=== PATIENT | male | born 1955 | race African-American/Black ===

== ENCOUNTER 2017-12-29 10:16 | Emergency (ER) | payer BC, OTHER ==
[2017-12-29 10:23] VITALS: BP 134/83; PULSE 103; TEMP 98; BMI 24.4
[2017-12-29] MEDS ORDERED: DIPHTH,PERTUSS(ACELL),TET 0.5 ML DISP.SYRIN IM ONE (10:40)
--- NOTE | 2017-12-29 11:10 | PDOC ---
History of Present Illness - General Chief Complaint: Injury Stated Complaint: INJURY Time Seen by Provider: 12/29/17 10:26 History Source: Patient - History of Present Illness Timing/Duration: reports: this morning Severity: Yes: mild Location: reports: extremities Past History - Past Medical History Allergies/Adverse Reactions: Allergies Allergy/AdvReac Type Severity Reaction Status Date / Time quinine [Quinine] Allergy Itching Verified 12/29/17 10:23 Home Medications: Ambulatory Orders Aspirin [ASA -] 81 mg PO DAILY 07/19/12 Levemir Flexpen - 24 units SQ HS 09/08/12 Insulin (Levemir) [Levemir Flexpen -] 24 units SQ HS #0 pen 09/10/12 Lisinopril [Prinivil] 20 mg PO DAILY #0 tablet 09/10/12 Pantoprazole Sodium [Protonix] 40 mg PO DAILY #0 tablet. 09/10/12 Sitagliptin Phosphate [Januvia -] 50 mg PO BIDAC #0 tablet 09/10/12 Oxycodone HCl/Acetaminophen [Percocet 5/325 -] 1 tab PO Q6H PRN #12 tablet 04/23 Anemia: Yes COPD: No Diabetes: Yes HTN: Yes Hypercholesterolemia: Yes - Suicide/Smoking/Psychosocial Hx Smoking Status: No Smoking History: Never smoked Number of Cigarettes Smoked Daily: 0 Hx Alcohol Use: Yes (OCCASIONAL) Review of Systems - Review of Systems Integumentary: Yes: Other (wound) *Physical Exam - Vital Signs Last Vital Signs Temp Pulse Resp BP Pulse Ox 98 F 103 H 20 134/83 99 12/29/17 10:21 12/29/17 10:21 12/29/17 10:21 12/29/17 10:21 12/29/17 10:21 - Physical Exam General Appearance: Yes: Appropriately Dressed. No: Apparent Distress HEENT: positive: Normal Voice Neck: positive: Supple Extremity: positive: Other (~1cm linear cutaneous lac to dorsum of R great toe) Integumentary: positive: Dry, Warm Neurologic: positive: Fully Oriented, Alert, Normal Mood/Affect Medical Decision Making - Medical Decision Making 12/29/17 10:40 62 yo M, h/o DM, HTN, HLD, here w/ lac to R great toe. Pt states he tripped in his slippers this am and states his R great toe hyperflexed during incident leading to injury See exam Superficial lac to dorsum of R great toe -dermabond -tetanus -dc w/ wound check as needed *DC/Admit/Observation/Transfer Diagnosis at time of Disposition: Toe laceration Qualifiers: Encounter type: initial encounter Toe: great toe Damage to nail status: unspecified Foreign body presence: unspecified Laterality: right Qualified Code( s): S91.111A - Laceration without foreign body of right great toe without damage to nail, initial encounter - Discharge Dispostion Disposition: HOME Condition at time of disposition: Good - Referrals Referrals: Moriah Trevino MD [Primary Care Provider] - - Patient Instructions Printed Discharge Instructions: DI for Laceration Repair Additional Instructions: Do not bandage a wound treated with an adhesive. The adhesive works like a bandage. Do not use antibiotic ointment as it can break down the adhesive. You can shower while the adhesive is on your skin, but do not take a bath or soak or scrub the area for 7 to 10 days. Dry your skin by patting it gently with a towel. The adhesive will peel off on its own, usually by 5 to 10 days. If after 10 days , you still have adhesive on you, you can use antibiotic ointment or petroleum jelly to get it off. You do not need to see the doctor again unless the wound doesnt heal well or you have signs of infection, such as redness, swelling, or pus. - Post Discharge Activity
== END 2017-12-29 11:25 | disposition home or self-care (01) ==
LOC: JERFT 10:16
PROC: 3E0234Z Introduction of Serum, Toxoid and Vaccine into Muscle, Percutaneous Approach (ICD-10-PCS; principal; 2017-12-29)
DX: S91.111A Laceration without foreign body of right great toe without damage to nail, initial encounter (principal); W18.09XA Striking against other object with subsequent fall, initial encounter; Y93.89 Activity, other specified; Y92.009 Unspecified place in unspecified non-institutional (private) residence as the place of occurrence of the external cause; E11.9 Type 2 diabetes mellitus without complications; I10 Essential (primary) hypertension; E78.5 Hyperlipidemia, unspecified
CPT/HCPCS: 90715; 99281-25

== ENCOUNTER 2017-12-29 12:44 | Emergency (ER) | payer BC ==
[2017-12-29 12:56] VITALS: BP 124/80; PULSE 110; TEMP 98; BMI 24.4
--- NOTE | 2017-12-29 14:23 | PDOC ---
History of Present Illness - General Chief Complaint: Injury Stated Complaint: REVISIT, INJURY Time Seen by Provider: 12/29/17 13:13 History Source: Patient - History of Present Illness Timing/Duration: reports: this morning Location: reports: extremities Past History - Past Medical History Allergies/Adverse Reactions: Allergies Allergy/AdvReac Type Severity Reaction Status Date / Time quinine [Quinine] Allergy Itching Verified 12/29/17 12:56 Home Medications: Ambulatory Orders Aspirin [ASA -] 81 mg PO DAILY 07/19/12 Levemir Flexpen - 24 units SQ HS 09/08/12 Insulin (Levemir) [Levemir Flexpen -] 24 units SQ HS #0 pen 09/10/12 Lisinopril [Prinivil] 20 mg PO DAILY #0 tablet 09/10/12 Pantoprazole Sodium [Protonix] 40 mg PO DAILY #0 tablet. 09/10/12 Sitagliptin Phosphate [Januvia -] 50 mg PO BIDAC #0 tablet 09/10/12 Anemia: Yes COPD: No Diabetes: Yes HTN: Yes Hypercholesterolemia: Yes - Suicide/Smoking/Psychosocial Hx Smoking Status: No Smoking History: Never smoked Number of Cigarettes Smoked Daily: 0 Hx Alcohol Use: Yes (OCCASIONAL) Review of Systems - Review of Systems Integumentary: Yes: Other (bleeding) *Physical Exam - Vital Signs Last Vital Signs Temp Pulse Resp BP Pulse Ox 98 F 110 H 20 124/80 99 12/29/17 12:54 12/29/17 12:54 12/29/17 12:54 12/29/17 12:54 12/29/17 12:54 - Physical Exam General Appearance: Yes: Appropriately Dressed. No: Apparent Distress HEENT: positive: Normal Voice Neck: positive: Supple Respiratory/Chest: negative: Respiratory Distress Extremity: positive: Other (well approximated lac to dorsum of R great toe w/ dermabond in place, there is a ~1-2 mm opening w/ minimal slow bleed) Integumentary: positive: Dry, Warm Neurologic: positive: Fully Oriented, Alert, Normal Mood/Affect Medical Decision Making - Medical Decision Making 12/29/17 14:33 62-year-old male, history of diabetes, hypertension, hyperlipidemia, seen in ED over an hour ago for superficial toe lac that was dermabonded. Pt states after he left ED, noticed increased bleeding from wound, despite compression dressing in place. Patient well-appearing and stable with mostly approximated wound with Dermabond in place with ~ 1-2 mm opening with minimal bleed. Dermabond reapplied with compression dressing. Dc to keep dressing in place for the rest of the day and to follow instructions about wound care at home given to patient at prior ER visit *DC/Admit/Observation/Transfer Diagnosis at time of Disposition: Visit for wound care - Discharge Dispostion Disposition: HOME Condition at time of disposition: Good - Referrals Referrals: Moriah Trevino MD [Primary Care Provider] - - Patient Instructions Additional Instructions: Follow directions given to you on prior ED visit - Post Discharge Activity Forms/Work/School Notes: Back to Work
== END 2017-12-29 14:28 | disposition home or self-care (01) ==
LOC: JERFT 12:44
DX: Z48.00 Encounter for change or removal of nonsurgical wound dressing (principal)
CPT/HCPCS: 99281-25

== ENCOUNTER 2021-05-25 19:08 | Emergency (ER) | payer OTHER, BC ==
[2021-05-25 19:43] VITALS: BMI 22.4
[2021-05-25] MEDS ORDERED: ACETAMINOPHEN 325 MG TABLET (FP) PO ONE (20:22)
[2021-05-25] MEDS ORDERED: LACTATED RINGERS SOLUTION 1000 ML INFUS.BAG IV ONE (20:31)
[2021-05-25 21:58] LABS: BASO % 0.8 % (0-2.0); EOS % 1.3 % (0-4.5); HEMATOCRIT 46.5 % (35.4-49); HEMOGLOBIN 15.4 GM/dL (11.7-16.9); LYMPH % 17.3 % (8-40); MCH 29.6 pg (25.7-33.7); MCHC 33.1 g/dl (32.0-35.9); MEAN CELL VOLUME 89.3 fl (80-96); MEAN PLT VOLUME 9.4 fl (7.5-11.1); MONO % 16.8 % (3.8-10.2); NEUT % 63.8 % (42.8-82.8); PLATELET COUNT 203 10^3/uL (134-434); RDW 13.7 % (11.9-15.9); WHITE BLOOD COUNT 4.7 K/mm3 (4.0-10.0)
[2021-05-25 22:23] LABS: CHLORIDE 104 mmol/L (98-107); SODIUM 138 mmol/L (136-145)
[2021-05-25 22:25] LABS: CALCIUM 9.3 mg/dL (8.5-10.1)
[2021-05-25 22:26] LABS: ALBUMIN 4.1 g/dl (3.4-5.0); ANION GAP 7 MMOL/L (8-16); BLOOD UREA NITROGEN 11.4 mg/dL (7-18); CO2 27 mmol/L (21-32); GLUCOSE,RANDOM 272 mg/dL (74-106)
[2021-05-25 22:29] LABS: CREATININE 0.9 mg/dL (0.55-1.3); SGOT/AST 21 U/L (15-37); SGPT/ALT 48 U/L (13-61)
[2021-05-25 22:30] LABS: BILIRUBIN,TOTAL 0.5 mg/dL (0.2-1); TOT PROT 8.3 g/dl (6.4-8.2)
[2021-05-25 22:31] LABS: ALK PHOS 126 U/L (45-117)
[2021-05-25 23:22] VITALS: BP 110/66; PULSE 84; TEMP 99
== END 2021-05-25 23:22 | disposition home or self-care (01) ==
LOC: JER 19:08
DX: U07.1 COVID-19 (principal); R53.81 Other malaise; R53.83 Other fatigue
CPT/HCPCS: 36415; 71046-TC-FY; 80053; 84484; 85025; 87804; 87807; 93005; 93010; 99285-25; C9803-CS; U0003; U0005

== ENCOUNTER 2021-07-01 22:08 | Emergency (ER) | payer OTHER, BC ==
[2021-07-01 22:24] VITALS: BP 155/95; PULSE 100; TEMP 97.6; BMI 24.4
[2021-07-01] MEDS ORDERED: ACETAMINOPHEN 500 MG TABLET (FP) PO ONE (23:58)
[2021-07-02] MEDS ORDERED: ACETAMINOPHEN 325 MG TABLET (FP) ONE (00:42)
[2021-07-02] MEDS ORDERED: LIDOCAINE 5% TOPICAL PATCH TP ONE (02:11)
[2021-07-02] MEDS ORDERED: LIDOCAINE 5% TOPICAL PATCH ONE (02:19)
[2021-07-02] MEDS ORDERED: LIDOCAINE PATCH REMOVAL MC SCH (22:00)
== END 2021-07-02 03:31 | disposition home or self-care (01) ==
LOC: JER 22:08
DX: S79.912A Unspecified injury of left hip, initial encounter (principal); W19.XXXA Unspecified fall, initial encounter; Y92.9 Unspecified place or not applicable
CPT/HCPCS: 73523-TC-FY; 73562-TC-LT-FY; 99285-25

== ENCOUNTER 2022-04-03 16:54 | Inpatient (IN) | payer OTHER, BC ==
[2022-04-03 17:34] VITALS: BMI 26.6
[2022-04-03 18:56] LABS: BASO % 0.5 % (0-2.0); EOS % 0.1 % (0-4.5); HEMATOCRIT 47.5 % (35.4-49); LYMPH % 8.5 % (8-40); MCH 30.3 pg (25.7-33.7); MCHC 33.6 g/dl (32.0-35.9); MEAN CELL VOLUME 89.9 fl (80-96); MEAN PLT VOLUME 8.5 fl (7.5-11.1); NEUT % 82.9 % (42.8-82.8); PLATELET COUNT 173 10^3/uL (134-434); RBC 5.28 M/mm3 (4.00-5.60); WHITE BLOOD COUNT 6.9 K/mm3 (4.0-10.0)
[2022-04-03 19:11] LABS: CALCIUM 9.4 mg/dL (8.5-10.1)
[2022-04-03 19:12] LABS: BLOOD UREA NITROGEN 16.7 mg/dL (7-18)
[2022-04-03 19:14] LABS: CREATININE 1.1 mg/dL (0.55-1.3); PHOSPHOROUS 2.5 mg/dL (2.5-4.9)
[2022-04-03 19:16] LABS: BILIRUBIN,TOTAL 0.6 mg/dL (0.2-1); TOT PROT 8.5 g/dl (6.4-8.2)
[2022-04-04] MEDS: SODIUM CHLORIDE 1,000 ML IV SCH ×2 (02:35→19:30)
[2022-04-04] MEDS: OSELTAMIVIR PHOSPHATE 75 MG CAPSULE PO SCH ×3 (02:35→21:53)
[2022-04-04] MEDS: INSULIN SLIDING SCALE (NOVOLOG) 1 VIAL SQ SCH ×4 (02:35→16:53)
[2022-04-04 10:00] LABS: EPI CELLS 2 /uL (0-25.1); HYALINE CASTS 0 /uL (0-3.1); PH,URINE 5.5 (5.0-8.0); URINE APPEARANCE CLEAR; URINE BACTERIA 5 /uL (0-1359); URINE BILIRUBIN NEGATIVE (NEGATIVE); URINE COLOR DK YELLOW; URINE GLUCOSE (UA) 3+ (NEGATIVE); URINE KETONE 1+ (NEGATIVE); URINE LEUK ESTERASE NEGATIVE (NEGATIVE); URINE NITRITE NEGATIVE (NEGATIVE); URINE PROTEIN 1+ (NEGATIVE); URINE RBC 29 /uL (0-23.9); URINE WBC 6 /uL (0-25.8)
[2022-04-04] MEDS: ENOXAPARIN NA (PORCINE) 40 MG/0.4 ML DISP.SYRIN SQ SCH (10:08)
[2022-04-04 13:24] LABS: HEMATOCRIT 43.8 % (35.4-49); HEMOGLOBIN 14.9 GM/dL (11.7-16.9); MCH 30.4 pg (25.7-33.7); MEAN CELL VOLUME 89.4 fl (80-96); MEAN PLT VOLUME 8.6 fl (7.5-11.1); PLATELET COUNT 153 10^3/uL (134-434); RDW 14.1 % (11.9-15.9); WHITE BLOOD COUNT 8.4 K/mm3 (4.0-10.0)
[2022-04-04 13:45] LABS: BLOOD UREA NITROGEN 15.5 mg/dL (7-18)
[2022-04-04 13:47] LABS: CALCIUM 8.7 mg/dL (8.5-10.1)
[2022-04-04 13:48] LABS: CREATININE 0.9 mg/dL (0.55-1.3); MAGNESIUM 2.1 mg/dL (1.8-2.4); PHOSPHOROUS 2.3 mg/dL (2.5-4.9)
[2022-04-04] MEDS ORDERED: LISINOPRIL 20 MG TABLET PO ONE (18:44)
[2022-04-04] MEDS: LISINOPRIL 20 MG TABLET PO SCH (21:53)
[2022-04-04] MEDS: INSULIN (LEVEMIR) 100 UNITS/ML UNITS SQ SCH (21:53)
[2022-04-04 22:37] VITALS: RESP 20
[2022-04-05] MEDS: SODIUM CHLORIDE 1,000 ML IV SCH ×2 (04:31→16:14)
[2022-04-05] MEDS: INSULIN (NOVOLOG) ASPART 100 UNITS/ML 10ML VIAL SQ SCH ×3 (06:48→16:57)
[2022-04-05] MEDS: INSULIN (LEVEMIR) 100 UNITS/ML UNITS SQ SCH ×2 (06:48→23:04)
[2022-04-05] MEDS: INSULIN SLIDING SCALE (NOVOLOG) 1 VIAL SQ SCH ×3 (06:54→16:57)
[2022-04-05 10:03] LABS: HEMATOCRIT 40.1 % (35.4-49); HEMOGLOBIN 13.6 GM/dL (11.7-16.9); MCH 30.1 pg (25.7-33.7); MCHC 33.9 g/dl (32.0-35.9); MEAN PLT VOLUME 9.3 fl (7.5-11.1); PLATELET COUNT 157 10^3/uL (134-434); RBC 4.51 M/mm3 (4.00-5.60); RDW 13.7 % (11.9-15.9); WHITE BLOOD COUNT 7.7 K/mm3 (4.0-10.0)
[2022-04-05] MEDS: ENOXAPARIN NA (PORCINE) 40 MG/0.4 ML DISP.SYRIN SQ SCH (10:16)
[2022-04-05] MEDS: OSELTAMIVIR PHOSPHATE 75 MG CAPSULE PO SCH ×2 (10:17→23:05)
[2022-04-05] MEDS: LISINOPRIL 20 MG TABLET PO SCH (10:17)
[2022-04-05 10:31] LABS: CALCIUM 8.3 mg/dL (8.5-10.1)
[2022-04-05 10:32] LABS: BLOOD UREA NITROGEN 12.7 mg/dL (7-18)
[2022-04-05 10:35] LABS: CREATININE 0.8 mg/dL (0.55-1.3)
[2022-04-05 10:37] LABS: BILIRUBIN,TOTAL 0.8 mg/dL (0.2-1)
[2022-04-05 10:44] LABS: ALBUMIN 2.8 g/dl (3.4-5.0); TOT PROT 6.5 g/dl (6.4-8.2)
[2022-04-05] MEDS ORDERED: SODIUM CHLORIDE NASAL SPRAY 44 ML BOTTLE NS PRN (17:03)
[2022-04-06] MEDS: INSULIN (NOVOLOG) ASPART 100 UNITS/ML 10ML VIAL SQ SCH ×3 (07:03→17:45)
[2022-04-06] MEDS: INSULIN (LEVEMIR) 100 UNITS/ML UNITS SQ SCH (07:03)
[2022-04-06] MEDS: INSULIN SLIDING SCALE (NOVOLOG) 1 VIAL SQ SCH ×3 (07:04→17:45)
[2022-04-06] MEDS: OSELTAMIVIR PHOSPHATE 75 MG CAPSULE PO SCH (09:58)
[2022-04-06] MEDS: LISINOPRIL 20 MG TABLET PO SCH (09:58)
[2022-04-06] MEDS: ENOXAPARIN NA (PORCINE) 40 MG/0.4 ML DISP.SYRIN SQ SCH (10:05)
[2022-04-06 10:14] VITALS: TEMP 98.4
[2022-04-06 13:08] LABS: HEMATOCRIT 41.8 % (35.4-49); HEMOGLOBIN 14.1 GM/dL (11.7-16.9); MCH 30.1 pg (25.7-33.7); MCHC 33.7 g/dl (32.0-35.9); MEAN CELL VOLUME 89.4 fl (80-96); MEAN PLT VOLUME 9.1 fl (7.5-11.1); PLATELET COUNT 169 10^3/uL (134-434); RBC 4.68 M/mm3 (4.00-5.60); RDW 14.1 % (11.9-15.9); WHITE BLOOD COUNT 5.8 K/mm3 (4.0-10.0)
[2022-04-06 13:29] LABS: ALBUMIN 3.2 g/dl (3.4-5.0); BLOOD UREA NITROGEN 8.5 mg/dL (7-18)
[2022-04-06 13:32] LABS: CREATININE 0.8 mg/dL (0.55-1.3)
[2022-04-06 13:34] LABS: BILIRUBIN,TOTAL 0.8 mg/dL (0.2-1); TOT PROT 7.4 g/dl (6.4-8.2)
[2022-04-06 15:39] VITALS: BP 134/76; PULSE 84
== END 2022-04-06 18:33 | disposition home or self-care (01) | DRG 193 ==
LOC: JER 16:54 → JERBED 20:01 → OBSVTOIN 22:40 → J8W 04-04 07:44
PROVIDERS: ADMIT Internal Medicine; ATTEND Internal Medicine
DX: J10.1 Influenza due to other identified influenza virus with other respiratory manifestations (principal); G93.41 Metabolic encephalopathy; I10 Essential (primary) hypertension; E78.5 Hyperlipidemia, unspecified; E86.0 Dehydration; E11.65 Type 2 diabetes mellitus with hyperglycemia
CPT/HCPCS: 0241U-QW; 36415; 70450-TC; 71045-TC-FY; 80048; 80053; 81003; 82962; 83036; 83735; 84100; 84484; 85025; 85027; 87086; 93005; 93010; 97116-GP; 97161-GP; 99285-25; G0378

== ENCOUNTER 2022-12-28 21:48 | Emergency (ER) | payer OTHER, BC ==
[2022-12-28 21:51] VITALS: BMI 23.7
[2022-12-28] MEDS ORDERED: NALOXONE HCL 0.4 MG/ML VIAL IVPUSH PRN (22:31)
[2022-12-28] MEDS ORDERED: NALOXONE HCL 0.4 MG/ML VIAL IVPUSH ONE (22:34)
[2022-12-28 22:58] LABS: BASO % 0.3 % (0-2.0); EOS % 2.7 % (0-4.5); HEMATOCRIT 45.5 % (35.4-49); HEMOGLOBIN 15.5 GM/dL (11.7-16.9); LYMPH % 3.9 % (8-40); MCH 29.8 pg (25.7-33.7); MCHC 34.1 g/dl (32.0-35.9); MEAN CELL VOLUME 87.3 fl (80-96); MEAN PLT VOLUME 9.1 fl (7.5-11.1); MONO % 6.3 % (3.8-10.2); NEUT % 86.8 % (42.8-82.8); PLATELET COUNT 169 10^3/uL (134-434); RBC 5.21 M/mm3 (4.00-5.60); RDW 13.6 % (11.9-15.9); WHITE BLOOD COUNT 7.9 K/mm3 (4.0-10.0)
[2022-12-28] MEDS ORDERED: SODIUM CHLORIDE 500 ML IV STA (23:04)
[2022-12-28 23:16] LABS: VENOUS BASE EXCESS -3.1 mmol/L (-2-2); VENOUS O2 SATURATION 96.5 % (70-80); VENOUS PCO2 32.6 mmHg (38-52); VENOUS PH 7.414 (7.310-7.410)
[2022-12-28 23:22] LABS: POTASSIUM 3.9 mmol/L (3.5-5.1)
[2022-12-28 23:24] LABS: ALBUMIN 3.7 g/dl (3.4-5.0)
[2022-12-28 23:25] LABS: BLOOD UREA NITROGEN 15.8 mg/dL (7-18)
[2022-12-28 23:27] LABS: CREATININE 1.1 mg/dL (0.55-1.3)
[2022-12-28 23:29] LABS: BILIRUBIN,TOTAL 0.6 mg/dL (0.2-1); TOT PROT 7.4 g/dl (6.4-8.2)
[2022-12-28] MEDS ORDERED: SODIUM CHLORIDE 1,000 ML IV STA (23:39)
[2022-12-29 02:14] LABS: PH,URINE 5.5 (5.0-8.0); URINE APPEARANCE CLEAR; URINE BILIRUBIN NEGATIVE (NEGATIVE); URINE COLOR YELLOW; URINE GLUCOSE (UA) 3+ (NEGATIVE); URINE KETONE TRACE (NEGATIVE); URINE LEUK ESTERASE NEGATIVE (NEGATIVE); URINE NITRITE NEGATIVE (NEGATIVE); URINE PROTEIN NEGATIVE (NEGATIVE); URINE UROBILINOGEN 0.2 mg/dL (0.2-1.0)
[2022-12-29 02:31] VITALS: BP 145/78; PULSE 87; RESP 16; TEMP 98
== END 2022-12-29 02:46 | disposition home or self-care (01) ==
LOC: JER 21:48
PROC: 3E0337Z Introduction of Electrolytic and Water Balance Substance into Peripheral Vein, Percutaneous Approach (ICD-10-PCS; principal; 2022-12-28)
DX: R53.1 Weakness (principal); E11.65 Type 2 diabetes mellitus with hyperglycemia; R35.89 Other polyuria; R11.10 Vomiting, unspecified; Z20.822 Contact with and (suspected) exposure to COVID-19
CPT/HCPCS: 0241U-QW; 36415; 70450-TC; 71045-TC-FY; 80053; 81003; 82010; 82803; 82962; 83605; 84443; 84484; 85025; 87040; 87086; 93005; 93010; 99285-25